=== PATIENT | male | born 1965 | race Caucasian/White ===

== ENCOUNTER 2016-06-16 23:41 | Emergency (ER) | payer OTHER ==
[2016-06-17] MEDS ORDERED: DILAUDID 1 MG/ML AMP ONE (01:55)
[2016-06-17] MEDS ORDERED: ONDANSETRON 4 MG VIAL ONE (01:55)
== END 2016-06-17 02:40 | disposition home or self-care (01) ==
LOC: ER 23:41
DX: K80.20 Calculus of gallbladder without cholecystitis without obstruction (principal); I10 Essential (primary) hypertension
CPT/HCPCS: 36415; 71010; 76705; 80053; 82550; 83690; 83735; 84484; 85025; 85610; 85730; 93005; 96374; 96375; 99285; J1170; J2405